=== PATIENT | male | born 1985 | race Caucasian/White ===

== ENCOUNTER → 2018-01-22 | Outpatient (CLI) | payer BC | END | disposition home or self-care (01) | LOC: KCIC MRI 09:09 | DX: S82.142A Displaced bicondylar fracture of left tibia, initial encounter for closed fracture (principal); M25.462 Effusion, left knee; M71.22 Synovial cyst of popliteal space [Baker], left knee; X58.XXXA Exposure to other specified factors, initial encounter; Y93.89 Activity, other specified; Y92.89 Other specified places as the place of occurrence of the external cause; Y99.8 Other external cause status | CPT/HCPCS: 73721 ==

== ENCOUNTER 2018-02-02 09:59 | Day surgery (SDC) | payer BC ==
[~2018-02-02 09:59] MED LIST: EPINEPHrine VIAL 30 MG/30 ML VIAL; LIDOCAINE 1% PF 2 ML VIAL. ID; ONDANSETRON PF 4 MG/2 ML VIAL. IV; fentaNYL PF VIAL 100 MCG/2 ML VIAL IV
[2018-02-02] MEDS ORDERED: fentaNYL PF VIAL 250 MCG/5 ML VIAL (10:12)
[2018-02-02] MEDS ORDERED: PROPOFOL 20 ML IV (10:15)
[2018-02-02] MEDS ORDERED: ONDANSETRON PF 4 MG/2 ML VIAL. (10:15)
[2018-02-02] MEDS ORDERED: LIDOCAINE 2% PF Vial for OR 5 ML VIAL. (10:15)
[2018-02-02] MEDS ORDERED: DEXAMETHASONE SOD PHOS 20 MG/5 ML VIAL. (10:15)
[2018-02-02] MEDS: IV RINGERS,LACTATED 1000ML 1,000 ML IV (10:27)
[2018-02-02] MEDS ORDERED: CELECOXIB 100 MG CAPSULE. PO (11:30)
[2018-02-02] MEDS ORDERED: MIDAZOLAM HCL/PF 2 MG/2 ML VIAL. (11:33)
[2018-02-02] MEDS ORDERED: FAMOTIDINE 20 MG/2 ML VIAL (11:33)
[2018-02-02] MEDS ORDERED: ROCURONIUM 50 MG/5 ML VIAL. (11:33)
[2018-02-02] MEDS: CELECOXIB 100 MG CAPSULE. PO (11:36)
[2018-02-02] MEDS ORDERED: ceFAZolin 2GM PREMIX 2 GM/50 ML BAG IV (12:00)
[2018-02-02] MEDS: BUPIVACAINE-EPI 0.25%-1:200000 50 ML VIAL. ×2 (12:05→14:04)
[2018-02-02] MEDS: EPINEPHrine NASAL 30 MG/30 ML BOTTLE TP (12:05)
[2018-02-02] MEDS ORDERED: NEOSTIGMINE METHYLSULFATE 5 MG/5 ML SYRINGE. (13:37)
[2018-02-02] MEDS ORDERED: GLYCOPYRROLATE 1 MG/5 ML VIAL. (13:38)
[2018-02-02] MEDS ORDERED: KETOROLAC 30 MG/ML INJ FOR OR. INJ (13:46)
[2018-02-02] MEDS ORDERED: SEVOFLURANE > 120 MINUTES. IH (14:05)
[2018-02-02] MEDS: fentaNYL PF VIAL 100 MCG/2 ML VIAL IV ×4 (14:28→15:04)
[2018-02-02] MEDS: oxyCODONE/APAP 5/325 1 TAB TABLET PO (15:03)
[2018-02-02] MEDS: PROCHLORPERAZINE 10 MG/2 ML VIAL. IV (15:27)
[2018-02-02] MEDS: MORPHINE SULFATE 2 MG/ML DISP.SYRIN. IV (15:55)
== END 2018-02-02 16:36 | disposition home or self-care (01) ==
LOC: SURG 09:59
DX: S83.512A Sprain of anterior cruciate ligament of left knee, initial encounter (principal); S83.242A Other tear of medial meniscus, current injury, left knee, initial encounter; S83.282A Other tear of lateral meniscus, current injury, left knee, initial encounter; F41.9 Anxiety disorder, unspecified; J45.909 Unspecified asthma, uncomplicated; Z90.49 Acquired absence of other specified parts of digestive tract; E66.9 Obesity, unspecified; Z68.37 Body mass index [BMI] 37.0-37.9, adult; F32.9 Major depressive disorder, single episode, unspecified; Z98.890 Other specified postprocedural states; Z83.3 Family history of diabetes mellitus; Z72.89 Other problems related to lifestyle; F17.220 Nicotine dependence, chewing tobacco, uncomplicated; Z79.899 Other long term (current) drug therapy; W22.8XXA Striking against or struck by other objects, initial encounter; Y93.89 Activity, other specified; Y92.89 Other specified places as the place of occurrence of the external cause; Y99.8 Other external cause status
CPT/HCPCS: 29881; 97161-GP; A7015; C1713; C1769; J0171; J0690; J0780; J1100; J1885; J2001; J2250; J2270; J2405; J2704; J2710; J3010; J3490; J7120; S0028

== ENCOUNTER → 2021-08-25 | Outpatient (CLI) | payer BC ==
[2018-02-02 15:50] VITALS: BP 135/75
[~2021-08-25] MED LIST changes: -EPINEPHrine VIAL 30 MG/30 ML VIAL; +FLUO40CA9 PO; -LIDOCAINE 1% PF 2 ML VIAL. ID; -ONDANSETRON PF 4 MG/2 ML VIAL. IV; +OXYC1TAB15 PO; +PROM25TA10 PO; -fentaNYL PF VIAL 100 MCG/2 ML VIAL IV
--- NOTE | 2021-08-25 17:15 | KCIC ---
STUDY: MRI of the left knee without contrast INDICATION: Meniscus tear. History of ACL reconstruction. Instability and crepitus. COMPARISON: Left knee MRI 01/22/2018. Left knee radiographs 02/01/2021 TECHNIQUE: Multiplanar MR imaging of the left knee performed without the use of intravenous or intra- articular contrast. FINDINGS: Menisci: The free edge of the lateral meniscus posterior horn is blunted and there is heterogeneity a t the posterior root insertion, also present on the comparison MRI, and there is no newly seen discre te tear of the lateral meniscus. The medial meniscus was torn on the comparison and is now diffusely diminutive and with a greater degree of tearing at the posterior horn/root junction. There may be fli pped and displaced meniscal tissue above the medial meniscus posterior root insertion such as on imag es 8 through 10 series 9. Cruciate ligaments: Status post ACL reconstruction. The reconstructed ligament is thin but intact and normally positioned relative to the intercondylar notch. Marrow edema and cystic change along the po sterior margin of the tibial tunnel. The PCL is intact. Collateral ligaments: No newly seen abnormality of the medial or lateral collateral ligaments. No ret inacular disruption. Unremarkable IT band. Tendons: Sequela of patellar tendon harvest. The extensor mechanism is intact. No tear or significant tendinosis elsewhere. Cartilage: Patellofemoral: No high-grade or full-thickness chondrosis. Lateral compartment: High-grade and partly full-thickness chondrosis at the posterior margin of the l ateral tibial plateau where an impaction deformity was seen on the comparison. Medial compartment: Progressive medial compartment chondrosis which appears partial thickness along t he weightbearing aspect and higher grade at the proximal nonweightbearing medial femoral condyle over lying the meniscus posterior horn. Bones: As above, edema and cystic change along the posterior margin of the tibial tunnel. Subchondral edema and cystic change beneath the high-grade chondrosis at the posterior aspect of the lateral tib ial plateau. Mild degenerative subchondral changes at the proximal nonweightbearing medial femoral co ndyle. Scattered small osteophytes. Miscellaneous: Small amount of knee joint fluid. Trace fluid within the medial gastrocnemius-semimemb ranosus bursa. IMPRESSION: 1. The medial meniscus is now diffusely diminutive in size and with progressive tearing such as seen at the posterior body/horn junction. Surgical debridement could contribute to the small size of the meniscus but there is a suspected flipped meniscal fragment displaced above the posterior root inser tion. Similar signal and morphology of the lateral meniscus from the preoperative MRI without a newly apparent tear. 2. The reconstructed ACL is thin but intact and normally located. 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 Edema and cystic change seen posterior to the tibial tunnel. 3. High-grade and in part full-thickness chondrosis at the posterior aspect of the lateral tibial pl ateau at the site of an impaction deformity on the 2018 MRI. Subchondral edema and cystic change subj acent to the chondrosis. Progressive mostly partial-thickness chondrosis at the medial compartment bu t with higher grade loss at the proximal nonweightbearing medial femoral condyle with mild subchondra l edema. Scattered small osteophytes. Electronically signed by: DARIEL CHAND MD (08/25/2021 5:12 PM) [id number]
== END ==
LOC: KCIC MRI 15:12
PROVIDERS: ATTEND Physician Assistant
DX: S83.242A Other tear of medial meniscus, current injury, left knee, initial encounter (principal); R60.0 Localized edema; M25.762 Osteophyte, left knee; M25.462 Effusion, left knee; X58.XXXA Exposure to other specified factors, initial encounter; Y93.89 Activity, other specified; Y92.89 Other specified places as the place of occurrence of the external cause; Y99.8 Other external cause status; Z98.890 Other specified postprocedural states
CPT/HCPCS: 73721